=== PATIENT | male | born 1955 | race Caucasian/White ===

== ENCOUNTER 2017-12-09 15:01 | Emergency (ER) | payer BC ==
[2017-12-09 16:02] VITALS: BP 146/73
--- NOTE | 2017-12-09 17:20 | UC ---
Head Injury HPI - HPI Summary HPI Summary: Patient slipped on the garage floor, landing face first, hematoma and abraision to the top of head, patient has had nausea and vomiting a few times since. denies any palpable pain, walks with a steady gait. - History Of Current Complaint Chief Complaint: UCHeadInjury Stated Complaint: HEAD INJURY S/P FALL YESTERDAY Time Seen by Provider: 12/09/17 17:10 Hx Obtained From: Patient Onset/Duration: Sudden Onset, Lasting Hours Severity Currently: Moderate Severity Initially: Moderate Pain Intensity: 6 Character: Throbbing Aggravating Factor(s): Nothing Alleviating Factor(s): Nothing Associated Signs And Symptoms: Positive: Nausea, Vomiting - Allergies/Home Medications Allergies/Adverse Reactions: Allergies Allergy/AdvReac Type Severity Reaction Status Date / Time environmental Allergy Congestion Uncoded 12/09/17 16:02 PMH/Surg Hx/FS Hx/Imm Hx Previously Healthy: Yes - Surgical History Surgical History: Yes Surgery Procedure, Year, and Place: hernia - Family History Known Family History: Positive: None Negative: Cardiac Disease, Hypertension - Social History Alcohol Use: Occasionally Substance Use Type: None Smoking Status (MU): Former Smoker Review of Systems Constitutional: Negative Skin: Negative Eyes: Negative ENT: Negative Respiratory: Negative Cardiovascular: Negative Gastrointestinal: Negative Genitourinary: Negative Motor: Negative Neurovascular: Negative Musculoskeletal: Arthralgia Neurological: Headache Psychological: Negative Is Patient Immunocompromised?: No All Other Systems Reviewed And Are Negative: Yes Physical Exam Triage Information Reviewed: Yes Appearance: Well-Appearing, Well-Nourished, Pain Distress Vital Signs: Initial Vital Signs Temp 98.3 F 12/09/17 15:58 Pulse 74 12/09/17 15:58 Resp 18 12/09/17 15:58 BP 146/73 12/09/17 15:58 Pulse Ox 100 12/09/17 15:58 Vital Signs Reviewed: Yes Eye Exam: Normal ENT: Positive: Pharynx normal, TMs normal Dental Exam: Normal Neck exam: Normal Neck: Positive: Supple, Nontender, No Lymphadenopathy Respiratory Exam: Normal Respiratory: Positive: Chest non-tender, Lungs clear, Normal breath sounds Cardiovascular Exam: Normal Cardiovascular: Positive: RRR, No Murmur, Pulses Normal Abdominal Exam: Normal Abdomen Description: Positive: Nontender, No Organomegaly, Soft Bowel Sounds: Positive: Present Musculoskeletal Exam: Normal Musculoskeletal: Positive: Strength Intact, ROM Intact, No Edema Neurological Exam: Normal Neurological: Positive: Alert, Muscle Tone Normal, Other: - PERRLA, + RHomberg, cranial nerves intact, pugger helper stregth is equal, face is symmetrical Psychological Exam: Normal Skin Exam: Normal Head Injury Course/Dx - Course Course Of Treatment: hx obtained, exam performed ,meds reviewed, CT of brain obtained,, neg for bleed, positive for pansinusitis - Differential Dx/Diagnosis Differential Diagnosis/HQI/PQRI: Concussion Without LOC, Intracranial Bleed, Skull Fracture Provider Diagnoses: pansinusitis. concussion Discharge - Discharge Plan Condition: Stable Disposition: HOME Prescriptions: Amoxicillin PO (*) [Amoxicillin 875 MG (*)] 875 mg PO BID #19 tab Azelastine 0.15% NASAL(NF) [Astepro 0.15% NASAL (NF)] 1 spray NASAL BID 14 Days #1 bottle predniSONE TAB* [Deltasone TAB*] 40 mg PO DAILY #14 tab Patient Education Materials: Sinusitis (ED), Concussion (ED) Referrals: Floyd Toledo DO [Primary Care Provider] - Additional Instructions: 1. Take the medication as prescribed. 2. Rest you eyes, if headache persists, rest. you are ok to take ibuprofen and tylenol for Headache or pain. 3. Increase fluid intake. 4. humdification of air and warm compresses to the sinuses. 5. FOllow up with any new onset of symtpoms.
--- NOTE | 2017-12-09 17:35 | RAD ---
INDICATION: Fall. Intracranial injury. COMPARISON: None TECHNIQUE: Noncontrast axial source images were acquired from the skull base to the vertex. FINDINGS: Ventricles/sulci: The ventricles and cisterns are normal in size and configuration for age. Brain parenchyma: There is no focal parenchymal finding, evidence of intracranial mass, or intracranial mass effect. Intracranial hemorrhage:None. Extra-axial spaces: There are no abnormal extra axial fluid collections or evidence of extra-axial mass. Calvarium: There is no calvarial fracture or other calvarial abnormality. Scalp: There is no evidence of scalp or extracalvarial soft tissue abnormality. Paranasal sinuses/mastoid: There is bilateral ethmoid sinusitis. There is circumferential thickening of the mucosa the maxillary antra as well. There is minor sphenoid sinus disease. The frontal air cells are hypoplastic. Other: None. IMPRESSION: No acute intracranial findings. Pansinusitis
[2017-12-09] MEDS ORDERED: Amoxicillin PO (*) 500 MG CAP PO ONE ×2 (17:45→17:50)
[2017-12-09] MEDS ORDERED: Ondansetron ODT TAB* 4 MG PO ONE (17:50)
== END 2017-12-09 18:03 | disposition home or self-care (01) ==
LOC: UCCORT 15:01
DX: S06.0X0A Concussion without loss of consciousness, initial encounter (principal); W01.0XXA Fall on same level from slipping, tripping and stumbling without subsequent striking against object, initial encounter; Y93.9 Activity, unspecified; Y92.015 Private garage of single-family (private) house as the place of occurrence of the external cause; J32.4 Chronic pansinusitis; R11.2 Nausea with vomiting, unspecified; Z87.891 Personal history of nicotine dependence
CPT/HCPCS: 70450; 99212; G0463

== ENCOUNTER 2019-07-15 09:44 | Emergency (ER) | payer MEDICARE, BC ==
--- OUTSIDE RECORDS SUMMARY | 2019-07-15 09:53 | XMS REPORT | Continuity of Care Document ---
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 Active Problems Provider Date Intrinsic asthma without status asthmaticus Floyd Toledo DO Onset: 02/17 Mixed hyperlipidemia Floyd Toledo DO Onset: 10/07/2007 Benign essential hypertension Floyd Toledo DO Onset: 10/07/2007 Social History Type Date Description Comments Sex Unknown ETOH Use Occasionally consumes alcohol Tobacco Use Start: Unknown End: Patient is a former smoker <100 cigs in life Unknown Smoking Status Reviewed: 06/26/19 Patient is a former smoker <100 cigs in life Allergies, Adverse Reactions, Alerts Description No Known Drug Allergies Medications Active Medications SIG Qnty Indications Ordering Provider Date Lisinopril-Hydrochlor take one tablet 90tabs Ivan Mcfarland DO 2018 othiazide by mouth every 20-12.5mg day Tablets [facility] D[facility] 1 po qd 90caps E55.9 Floyd Toledo, 06/11/2012 2000Unit DO Capsules Immunizations CPT Code Status Date Vaccine Lot # [id number] Given 06/26/2019 Prevnar 13 Pneumococal Conjugate Vaccine [id number] Given 09/26/2018 Shingrix (Shingles) Zoster Vaccine HZV, Recombinant, Subunit, Adj [id number] Given 07/01/2018 Shingrix (Shingles) Zoster Vaccine HZV, Recombinant, Subunit, Adj [id number] Refused 06/26/2019 Influenza Vac, Quadrivalent, Split, 0.5mL Dosage, Im Use [id number] Refused 12/09/2018 Afluria Or Fluvirin Flu Vac Intramuscular Vital Signs Date Vital Result Comment 06/26/2019 9:30am Weight 147.00 lb Heart Rate 80 /min BP Systolic 152 mmHg BP Diastolic 90 mmHg BP Systolic Recheck 130 mmHg BP Diastolic Recheck 78 mmHg Respiratory Rate 17 /min Height 67.25 inches 5'7.25" BMI (Body Mass Index) 22.9 kg/m2 12/09/2018 8:39am Weight 152.00 lb Heart Rate 84 /min BP Systolic 142 mmHg BP Diastolic 82 mmHg Respiratory Rate 18 /min Height 67.25 inches 5'7.25" BMI (Body Mass Index) 23.6 kg/m2 Results Test Date Facility Test Result H/L Range Note Basic (BMP) 06/20/2019 [facility] Sodium 133 mmol/L Low 135-146 1 Potassium 4.4 mmol/L 3.5-5.2 Chloride# 96 mmol/L Low 97-110 2 Carbon Dioxide 25 mmol/L 24-34 Glucose 118 mg/dL High 70-105 BUN 10 mg/dL 6-26 Creatinine 0.9 mg/dL 0.5-1.4 Calcium 9.9 mg/dL 8.5-10.5 3 Female Egfr 66 >60 4 Male Egfr 88 >60 5 Anion Gap 12 mmol/L 5-15 6 CBC with Auto Diff-fcmg 06/20/2019 [facility] WBC 5.5 K/uL 4.1-11.0 RBC 4.85 M/uL 4.60-6.10 Hemoglobin 15.6 gm/dL 13.5-18.0 Hematocrit 43.7 % 41.0-53.0 MCV 90.2 fL 80.0-97.0 MCH 32.2 pg High 27.0-32.0 MCHC 35.7 g/dL 32.0-36.0 RDW 12.8 % 11.5-14.5 PLT Count 264 K/ul 140-400 MPV 7.9 FL 7.1-10.7 Neutrophil 54.4 % 35.0-75.0 Lymphocyte 30.4 % 16.0-52.0 Monocyte 9.4 % 2.0-10.0 Eosinophil 5.2 % High 0.0-5.0 Basophil 0.6 % 0.0-4.0 Abs Neutrophils 3.0 K/uL 2.1-8.0 Abs Lymphocytes 1.7 K/uL 0.8-5.5 Abs Monocytes 0.5 K/uL 0.1-1.0 Abs Eosinophils 0.3 K/uL 0.0-0.5 Abs Basophils 0.0 K/uL 0.0-0.3 Laboratory test finding 06/20/2019 [facility] TSH 2.94 uIU/mL 0.35-4.94 Lipid Treatment 06/20/2019 [facility] Cholesterol 222 mg/dL High 50-199 Triglycerides 175 mg/dL 30-200 HDL 67 mg/dL 29-71 7 Chol/ HDL Ratio 3.3 ratio Low 4.0-6.7 VLDL 35 mg/dL High 2-29 LDL (Calc) 120 mg/dL High 20-99 8 Alt 26 U/L 3-42 Ast 28 U/L 8-42 Laboratory test finding 06/20/2019 [facility] Vitamin D 25 Hydroxy 53 ng/mL 30-100 9 PSA 1.510 ng/mL 0.000-4.000 10 1 Updated reference range on new analyzer 2 Updated reference range on new analyzer 3 Updated reference range 03-12-2019 4 Concerning GFR Guidelines for Americans: Normal function or mild renal disease, if clinically at risk: >/= 60 mL/min Moderately decreased: 30-59 Severely decreased: 15-29 Renal failure: <15 There is reduced accuracy above 60ml/min/1.73 m squared, but the numeric value may be clinically useful in the near 60 range 5 Concerning GFR Guidelines: Normal function or mild renal disease, if clinically at risk: >/= 60 mL/min Moderately decreased: 30-59 Severely decreased: 15-29 Renal failure: <15 There is reduced accuracy above 60ml/min/1.73 m squared, but the numeric value may be clinically useful in the near 60 range Glomerular Filtration Rate (GFR) is estimated based on the CKD-EPI equation, which assumes a steady state for creatinine as recommended by the National Kidney Disease Education Program in conjunction with the National Institutes of Health and the National Kidney Foundation. Clinical conditions in which it may be necessary to measure GFR by using clearance methods include extremes of age and body size, severe malnutrition or obesity, diseases of skeletal muscle, paraplegia or quadriplegia, vegetarian diet, rapidly changing kidney function, and calculation of the dose of potentially toxic drugs that are excreted by the kidneys. 6 Updated Reference Range -2017 7 Per NCEP ATP III Guidelines: Results lower than 40 mg/dL are suggestive of increased risk for coronary artery disease. Results > or = to 60 mg/dL are considered a negative risk factor. 8 Per NCEP ATP III Guidelines: Normal Population <130 Patients with medical conditions: CHD/DM Optimal: <100 Borderline high: 130-159 High: 160-189 Very high: >189 9 Clinical Guidelines for recommended serum 25(OH)Vitamin D Deficient at less than 20 ng/mL Insufficient at 20 to <30 ng/mL Sufficient at 30-100 ng/mL Toxicity at greater than 100 ng/mL 10 Beginning 01/07/07 PSA values assayed at [facility] uses chemiluminescence methodology manufactured by [employer] for use on the DXI analyzer. Values obtained with different assay methods or kits can not be used interchangeably. Serum PSA measurement is not an absolute test for malignancy. The PSA value should be used in conjunction with information available from clinical evaluation and other diagnostic procedures. Procedures Date Code Description Status 02/09/2015 63598332 Colonoscopy Completed Medical Devices Description No Information Available Encounters Description No Information Available Assessments Date Code Description Provider 06/26/2019 Z00.00 Encounter for general adult medical Ivan Mcfarland DO examination without abnormal findings 06/26/2019 I10 Essential (primary) hypertension Ivan Mcfarland DO 06/26/2019 E78.2 Mixed hyperlipidemia Ivan Mcfarland DO 06/26/2019 E55.9 Vitamin D deficiency, unspecified Ivan Mcfarland DO 06/26/2019 L20.9 Atopic dermatitis, unspecified Ivan Mcfarland DO 06/26/2019 Z23 Encounter for immunization Ivan Mcfarland DO 06/20/2019 I10 Essential (primary) hypertension Ivan Mcfarland DO 06/20/2019 I10 Essential (primary) hypertension Schedule, Laboratory 06/20/2019 E78.2 Mixed hyperlipidemia Ivan Mcfarland DO 06/20/2019 E78.2 Mixed hyperlipidemia Schedule, Laboratory 06/20/2019 E55.9 Vitamin D deficiency, unspecified Ivan Mcfarland DO 06/20/2019 E55.9 Vitamin D deficiency, unspecified Schedule, Laboratory 06/20/2019 Z12.5 Encounter for screening for malignant neoplasm Ivan Mcfarland DO of prostate 06/20/2019 Z12.5 Encounter for screening for malignant neoplasm Schedule, Laboratory of prostate 06/20/2019 I10 Essential (primary) hypertension [facility] 06/20/2019 E78.2 Mixed hyperlipidemia [facility] 06/20/2019 E55.9 Vitamin D deficiency, unspecified [facility] 06/20/2019 Z12.5 Encounter for screening for malignant neoplasm [facility] Lab of prostate Plan of Treatment Future Appointment(s):12/23/2019 7:45 am - Schedule, Laboratory at [facility]2019 8:15 am - Ivan Mcfarland, DO at [facility]06/26/2019 - Ivan Mcfarland DOZ00.00 Encounter for general adult medical examination without abnormal findingsFollow up:Blood work in 6 months and will follow up with me a couple of days later.I10 Essential (primary) hypertensionNew Labs:CBC with Auto Diff-fcmg, Scheduled: 10/01Basic (BMP), Scheduled: 12/23/19TSH, Scheduled: 12/23/19Lipid Treatment, Scheduled: 12/23/19Comments:Today, the patient's BP is elevated at 152/90; on recheck it was at 130/78. -The patient was advisedto continue with current line of therapies which include Lisinopril/HCTZ 20/12.5 mg po daily.-The patient will benefit from maintaining a low sodium diet.-The patient was encouraged to monitor his BP periodically at home and maintain a log of the same to bring along during his next visit for comparison.-The patient was advised to participate in activities that lower blood pressure and cardiac load. We will continue to monitor.E78.2 Mixed hyperlipidemiaComments:Labs reviewed with the patient in detail. Patient will continue with his current regimen. Encouraged to maintain a low cholesterol diet and a regular exercise regimen. We will continue to monitor.E55.9 Vitamin D deficiency, unspecifiedNew Labs:Vitamin D 25 Hydroxy, Scheduled: 12/23/19L20.9 Atopic dermatitis, [id number] Encounter for immunizationComments:Administered Prevnar vaccination after reviewing the side-effects on 06/26/2019. Handouts provided. The patient tolerated well. Functional Status Description No Information Available Mental Status Description No Information Available Referrals Description No Information Available
[2019-07-15 10:01] VITALS: BP 128/58
--- NOTE | 2019-07-15 13:45 | UC ---
Abdominal Pain Male HPI - HPI Summary HPI Summary: nausea and vomiting x 3 days vomited x 2 on Sunday , none since + fatigue, chills, body aches, no abdominal pain no diarrhea, has been having chills and sweating better today - History of Current Complaint Chief Complaint: UCGeneralIllness Stated Complaint: CHILLS,QUARLES,SWEATING Time Seen by Provider: 07/15/19 10:21 Hx Obtained From: Patient Onset/Duration: Gradual Onset, Lasting Days - 3, Still Present Timing: Constant Severity Initially: Severe Severity Currently: Mild Pain Intensity: 0 Pain Scale Used: 0-10 Numeric Location: Diffuse Radiates: No Character: Aching Aggravating Factor(s): Nothing Alleviating Factor(s): Nothing Associated Signs And Symptoms: Positive: Back Pain, Decreased Appetite, Nausea, Vomiting. Negative: Fever, Cough, Chest Pain, Constipation, Blood in Stool, Urinary Symptoms, Diarrhea, Penile Discharge - Allergies/Home Medications Allergies/Adverse Reactions: Allergies Allergy/AdvReac Type Severity Reaction Status Date / Time environmental Allergy Congestion Uncoded 07/15/19 10:01 Home Medications: Home Medications Ibuprofen TAB* [Advil TAB*] 1 tab PO ONCE 07/15/19 [History Confirmed 07/15/19] Lisinopril TAB* [Prinivil TAB 5 MG*] 1 tab PO DAILY 07/15/19 [History Confirmed 07/15/19] PMH/Surg Hx/FS Hx/Imm Hx Cardiovascular History: Hypertension - Surgical History Surgical History: Yes Surgery Procedure, Year, and Place: hernia - Family History Known Family History: Positive: None Negative: Cardiac Disease, Hypertension - Social History Alcohol Use: Daily Substance Use Type: None Smoking Status (MU): Former Smoker Review of Systems All Other Systems Reviewed And Are Negative: Yes Constitutional: Positive: Chills, Fatigue Skin: Positive: Negative Eyes: Positive: Negative ENT: Positive: Negative Respiratory: Positive: Negative Cardiovascular: Positive: Negative Gastrointestinal: Positive: Vomiting, Nausea. Negative: Abdominal Pain, Diarrhea Genitourinary: Positive: Negative Is Patient Immunocompromised?: No Physical Exam Triage Information Reviewed: Yes Appearance: Well-Appearing, No Pain Distress, Well-Nourished Vital Signs: Initial Vital Signs Temp 97.5 F 07/15/19 09:56 Pulse 88 07/15/19 09:56 Resp 16 07/15/19 09:56 BP 128/58 09/03/19 09:56 Pulse Ox 98 07/15/19 09:56 Eyes: Positive: Conjunctiva Clear ENT: Positive: Normal ENT inspection, Hearing grossly normal, Pharynx normal Neck: Positive: Supple, Nontender, No Lymphadenopathy Respiratory: Positive: Chest non-tender, Lungs clear, Normal breath sounds Cardiovascular: Positive: RRR, No Murmur, Pulses Normal Abdominal Exam: Normal Abdomen Description: Positive: Nontender, No Organomegaly, Soft. Negative: CVA Tenderness (R), CVA Tenderness (L), Distended, Guarding Bowel Sounds: Positive: Present Skin Exam: Normal Abd Pain Male Course/Dx - Differential Dx/Clinical Impression Differential Diagnosis/HQI/PQRI: Prostatitis Provider Diagnosis: Viral illness Discharge ED - Sign-Out/Discharge Documenting (check all that apply): Patient Departure All imaging exams completed and their final reports reviewed: No Studies - Discharge Plan Condition: Stable Disposition: HOME Patient Education Materials: Viral Syndrome (ED) Referrals: Ivan Mcfarland DO [Primary Care Provider] - If Needed Additional Instructions: please return back to the urgent care to follow up with your pcp if not better in few days sooner if having fever, urinary sx - Billing Disposition and Condition Condition: STABLE Disposition: Home
== END 2019-07-15 12:24 | disposition home or self-care (01) ==
LOC: UCCORT 09:44
DX: B34.9 Viral infection, unspecified (principal); I10 Essential (primary) hypertension; Z87.891 Personal history of nicotine dependence
CPT/HCPCS: 99211; G0463